=== PATIENT | male | born 1960 | race Two or more races ===

== ENCOUNTER → 2023-05-30 | Outpatient (CLI) | payer MEDICAID ==
[~2023-05-30] VITALS: Ht 190.5 cm; Wt 119.7 kg
== END | disposition home or self-care (01) ==
LOC: Rad HDHVI 09:17
PROVIDERS: ATTEND Internal Medicine Cardiovascular Disease
DX: Z13.0 Encounter for screening for diseases of the blood and blood-forming organs and certain disorders involving the immune mechanism (principal); I10 Essential (primary) hypertension; F17.210 Nicotine dependence, cigarettes, uncomplicated; E78.00 Pure hypercholesterolemia, unspecified; Z79.899 Other long term (current) drug therapy
CPT/HCPCS: 78452; 93017; 93306; 96374; A9500

== ENCOUNTER → 2023-07-08 | Outpatient (CLI) | payer MEDICAID ==
[~2023-07-08] MED LIST: ALBU108A5 IN; ASPITAB37 PO; TRIA37.587 PO
[2023-07-08 09:40] VITALS: BP 111/69; PULSE 50; RESP 16; O2SAT 91
[2023-07-08 09:50] VITALS: BP 110/66; PULSE 50; RESP 16; O2SAT 91
== END | disposition home or self-care (01) ==
LOC: CHF HDHVI 09:31
PROVIDERS: ATTEND Internal Medicine Cardiovascular Disease
DX: Z01.818 Encounter for other preprocedural examination (principal)
CPT/HCPCS: 93005; G0463

== ENCOUNTER 2023-07-10 08:41 | Day surgery (SDC) | payer MEDICAID ==
[2023-07-08 10:53] LABS: Basophils # (auto) 0 10 ^3/uL (0-0.2); Basophils % (auto) 0.6 % (0.0-2.0); Eosinophils # (auto) 0.3 10 ^3/uL (0-0.8); Eosinophils % (auto) 3.6 % (0.0-7.0); Hemoglobin 15.3 g/dL (13.5-17.5); Mean Corpuscular Volume 91.2 fL (80.0-100.0); Monocytes # (auto) 1.1 10 ^3/uL (0-1.3); Neutrophils # (auto) 4.8 10 ^3/uL (1.6-8.6); Neutrophils % (auto) 58.8 % (37.0-80.0); Nucleated Red Blood Cells % 0.1 %; Red Blood Cells 4.93 10^6/uL (4.5-5.90); Red Cell Distribution Width 12.9 % (11.8-14.3); White Blood Cell 8.2 10^3/uL (4.4-10.8)
[2023-07-08 11:11] LABS: INR 0.98 (0.9-1.15); Prothrombin Time 10.3 sec (9.3-11.8)
[2023-07-08 11:31] LABS: Chloride 107 mmol/L (98-107); Potassium 4.5 mmol/L (3.5-5.1); Sodium 140 mmol/L (136-145)
[2023-07-08 11:32] LABS: Anion Gap 4 (5-15); Carbon Dioxide 29 mmol/L (20-30)
[2023-07-08 11:33] LABS: Calcium 9.9 mg/dL (8.7-10.4)
[2023-07-08 11:37] LABS: Glucose 70 mg/dL (74-106)
[2023-07-08 11:38] LABS: BUN/Creatinine Ratio 14.8 (10.0-20.0); Blood Urea Nitrogen 19 mg/dL (9-23)
[~2023-07-10] VITALS: Ht 193 cm; Wt 121.1 kg
[2023-07-10] MEDS ORDERED: ACETAMINOPHEN 500 MG TAB PO ONE ×2 (14:45→14:46)
== END 2023-07-10 15:25 | disposition home or self-care (01) ==
LOC: CATH 08:41
PROVIDERS: ATTEND Internal Medicine Cardiovascular Disease
DX: R94.39 Abnormal result of other cardiovascular function study (principal); R07.89 Other chest pain; I10 Essential (primary) hypertension; Z79.899 Other long term (current) drug therapy
CPT/HCPCS: 36415; 80048; 85025; 85610; 85730; 93458; C1894; J0583; J1644; J2250; J3010; Q9967; 99152

== ENCOUNTER → 2024-07-26 | Outpatient (CLI) | payer MEDICAID | END | disposition home or self-care (01) | LOC: RT 14:24 | PROVIDERS: ATTEND Internal Medicine Pulmonary Disease | DX: J44.9 Chronic obstructive pulmonary disease, unspecified (principal); R06.09 Other forms of dyspnea | CPT/HCPCS: 94060; 94618; 94727; 94729 ==

== ENCOUNTER → 2024-10-13 | Outpatient (CLI) | payer MEDICAID | END | disposition home or self-care (01) | LOC: Rad HDHVI 13:31 | PROVIDERS: ATTEND Internal Medicine Cardiovascular Disease | DX: I10 Essential (primary) hypertension (principal); R00.2 Palpitations | CPT/HCPCS: 93306 ==